=== PATIENT | male | born 1940 | race Caucasian/White ===

== ENCOUNTER 2018-07-12 10:31 | Emergency (ER) | payer OTHER, MEDICARE ==
[~2018-07-12] VITALS: Ht 170.2 cm; Wt 83.9 kg
[2018-07-12] MEDS ORDERED: BENAZEPRIL HCL40 MG PO (10:56)
[2018-07-12] MEDS ORDERED: LIPITOR80 MG PO (10:56)
[2018-07-12] MEDS ORDERED: ASPIR 8181 MG PO (10:57)
[2018-07-12] MEDS ORDERED: ACETAMINOPHEN-1 EAC1 PO (11:51)
[2018-07-12] MEDS ORDERED: SENNA8.6 MG PO (11:54)
[2018-07-12 12:15] VITALS: BP 138/71
== END 2018-07-12 12:16 | disposition home or self-care (01) ==
LOC: ER 10:31
DX: S46.001A Unspecified injury of muscle(s) and tendon(s) of the rotator cuff of right shoulder, initial encounter (principal); W18.39XA Other fall on same level, initial encounter; Y92.89 Other specified places as the place of occurrence of the external cause; Y93.89 Activity, other specified; Y99.8 Other external cause status